=== PATIENT | male | born 1995 | race Caucasian/White ===

== ENCOUNTER 2017-04-29 14:40 | Emergency (ER) | payer SELFPAY ==
[~2017-04-29] VITALS: Ht 167.6 cm; Wt 60.0 kg
[~2017-04-29 14:40] MED LIST: FOCALIN XR25 MG PO; NO HOME MEDS; TOPAMAX25 MG PO; TRAZODONE50 MG PO
[2017-04-29] MEDS ORDERED: BACTRIM DS1 TAB PO (15:05)
[2017-04-29 15:25] VITALS: BP 119/76
== END 2017-04-29 15:25 | disposition home or self-care (01) | DRG 607 ==
LOC: ED 14:40
DX: S80.861A Insect bite (nonvenomous), right lower leg, initial encounter (principal); L03.115 Cellulitis of right lower limb; M79.604 Pain in right leg; W57.XXXA Bitten or stung by nonvenomous insect and other nonvenomous arthropods, initial encounter

== ENCOUNTER 2017-09-18 16:50 | Emergency (ER) | payer SELFPAY ==
[~2017-09-18] VITALS: Ht 167.6 cm; Wt 60.0 kg
[~2017-09-18 16:50] MED LIST changes: +BACTRIM DS1 TAB PO
[2017-09-18 17:00] VITALS: BP 109/57
== END 2017-09-18 17:24 | disposition home or self-care (01) | DRG 605 ==
LOC: ED 16:50
PROC: 0HQ1XZZ Repair Face Skin, External Approach (ICD-10-PCS; principal; 2017-09-18)
DX: S01.81XA Laceration without foreign body of other part of head, initial encounter (principal); V86.55XA Driver of 3- or 4- wheeled all-terrain vehicle (ATV) injured in nontraffic accident, initial encounter

== ENCOUNTER 2021-09-24 23:31 | Emergency (ER) | payer SELFPAY ==
[~2021-09-24] VITALS: Ht 167.6 cm; Wt 55.5 kg
[2021-09-24] MEDS ORDERED: SILVADENE1 % EX (23:46)
[2021-09-25 00:17] VITALS: BP 129/84
== END 2021-09-25 00:17 | disposition home or self-care (01) | DRG 935 ==
LOC: ED 23:31
PROC: 2W2EX4Z Dressing of Right Hand using Bandage (ICD-10-PCS; principal; 2021-09-25)
DX: T23.261A Burn of second degree of back of right hand, initial encounter (principal); T23.231A Burn of second degree of multiple right fingers (nail), not including thumb, initial encounter; F17.200 Nicotine dependence, unspecified, uncomplicated; T31.0 Burns involving less than 10% of body surface; X10.2XXA Contact with fats and cooking oils, initial encounter; Y93.G3 Activity, cooking and baking; Y92.000 Kitchen of unspecified non-institutional (private) residence as the place of occurrence of the external cause